=== PATIENT | female | born 1980 | race Two or more races ===

== ENCOUNTER 2019-10-07 08:51 | Emergency (ER) | payer MEDICAID ==
[~2019-10-07] VITALS: Ht 175.3 cm; Wt 73.9 kg
[~2019-10-07 08:51] MED LIST: PREN-96 PO
[2019-10-07 09:12] VITALS: BP 130/84
== END 2019-10-07 10:19 | disposition home or self-care (01) ==
LOC: ER 08:51
DX: S92.515A Nondisplaced fracture of proximal phalanx of left lesser toe(s), initial encounter for closed fracture (principal); W22.8XXA Striking against or struck by other objects, initial encounter; Y93.01 Activity, walking, marching and hiking; Y92.89 Other specified places as the place of occurrence of the external cause; Y99.8 Other external cause status
CPT/HCPCS: 73660